=== PATIENT | female | born 1970 | race Caucasian/White ===

== ENCOUNTER 2016-11-30 13:59 | Emergency (ER) | payer OTHER ==
[~2016-11-30] VITALS: Ht 160 cm; Wt 77.1 kg
[~2016-11-30 13:59] MED LIST: FLOMAX0.4 M1 PO; FLUOXETINE HCL20 M2; PERCOCET 5-3251 EACH PO; TOPAMAX25 M3 PO; ZOFRAN ODT4 M1 SL
--- NOTE | 2016-11-30 14:10 | ED GENERAL ADULT ---
History of Present Illness General Chief Complaint: General Adult Stated Complaint: PT CHEST IS HURTING ,DIZZY,NAUSEA Source: patient Exam Limitations: no limitations Vital Signs & Intake/Output Vital Signs & Intake/Output Vital Signs Date Time Temp Pulse Resp B/P Pulse O2 O2 Flow FiO2 Ox Delivery Rate 11/30 1626 78 18 147/89 98 Nasal 2.0L Cannula 11/30 1616 72 18 140/78 97 Room Air 11/30 1407 97.0 90 20 163/80 97 Room Air Allergies Coded Allergies: Penicillins (RASH 06/21/16) hydromorphone (From DILAUDID) (VOMITING, PAIN , SICK 11/30/16) Reconcile Medications Atorvastatin Calcium 10 MG TABLET 1 TAB PO DAILY CHOLESTEROL (Reported) Ergocalciferol (Vitamin D2) (Vitamin D2) 50,000 UNIT CAPSULE 1 CAP PO QTUES SUPPLEMENT (Reported) Fluoxetine HCl (Prozac) 40 MG CAPSULE 1 CAP PO QAM ANXIETY (Reported) Naproxen (Naprosyn) 500 MG TABLET 1 TAB PO Q12H PRN PAIN/INFLAMMATION ( Reported) Topiramate (Topamax) 25 MG TABLET 25 MG PO BID MIGRAINES (Reported) Triage Note: PT PRESENTS TO ER C/O OF LEFT SIDED CHEST PAIN THAT STARTED LAST NIGHT. PT ALSO C/O OF DIZZNESS AND NAUSEA. PT STATES SHE HAD A NUC STRESS TEST YESTERDAY BECAUSE SHE HAS BEEN HAVING CHEST PAIN. PT UNSURE OF RESULTS. PT STATES SHE WAS LYING DOWN IN BED WHEN PAIN STARTED Triage Nurses Notes Reviewed? yes Onset: Gradual Duration: day(s): (1.5) Timing: recent history Injury Environment: home Severity: moderate Severity Numbers: 7 No Modifying Factors: none Associated Symptoms: chest pain HPI: Patient is a 46-year-old female with recent history of chest pains presenting to the emergency department with chief complaint left-sided chest pain that sharp and stabbing in nature and nonradiating. Patient also reports that she had a nuclear stress test done yesterday, unsure about the results. She did not call her mixing machine tender that she did not want to bother them. Denies any palpitations. Patient reports malaise, intermittent dizziness is worse with positional changes. Positive nausea, no vomiting. Denies any change in bowel habits. No urinary symptoms. Denies taking anything help with symptoms. She does report that she's been under a lot of stress. Denies any coughing or sputum production. No fevers or chills. (LUÍS HO) Past History Travel History Traveled to [place] past 21 day No Medical History Any Pertinent Medical History? see below for history Neurological: NONE EENT: NONE Cardiovascular: NONE Respiratory: NONE Gastrointestinal: NONE Hepatic: NONE Renal: KIDNEY STONES Musculoskeletal: NONE Psychiatric: anxiety Endocrine: NONE Blood Disorders: NONE Cancer(s): NONE EXPLOSIVE ORDNANCE DISPOSAL SPECIALIST/Reproductive: OVARIAN CYST Surgical History Surgical History: OVARIAN CYST, TUBAL LIGATION Psychosocial History What is your primary language French Tobacco Use: Quit >30 days ago Family History Hx Contributory? No (LUÍS HO) Review of Systems Review of Systems Constitutional: Reports: malaise. Comments Review of systems: See HPI, All other systems negative. Constitutional, no chills fever or weight loss HEENT: No visual changes no sore throat no congestion Cardiovascular: No palpitation , orthopnea or ankle swelling Skin, no jaundice no rashes Respiratory: No dyspnea cough sputum or hemoptysis GI: no vomiting : No dysuria No hematuria Muscle skeletal: no back pain, no neck pain, Neurologic: No numbness no confusion Psych: positive stress and anxiety Immunology: No splenectomy or history of AIDS (LUÍS HO) Physical Exam Physical Exam General Appearance: well developed/nourished, no apparent distress, alert, awake , comfortable Comments: Well-developed well-nourished person in no acute distress HEENT: Pupils equally round and reactive to light and accommodation. Nose is atraumatic. Neck: Supple, no lymphadenopathy, normal range of motion without pain or tenderness Back: Nontender, no CVA tenderness. Full range of motion Cardiovascular: Regular rate and rhythms no murmurs rubs or gallops, normal JVP Respiratory: Chest nontender. No respiratory distress.breath sounds clear to auscultation bilaterally Abdomen: Soft, nontender nondistended, no appreciable organomegaly. Normal bowel sounds. No ascites Extremity: No edema, no calf tenderness to palpation, normal and equal pulses. Neuro: Alert oriented x3, cranial nerves II through XII grossly intact. Skin: No appreciable rash on exposed skin, skin is warm and dry. Psych: Mood and affect is normal, memory and judgment is normal. Core Measures ACS in differential dx? Yes CVA/TIA Diagnosis: No Severe Sepsis Present: No Septic Shock Present: No (LUÍS HO) Progress Differential Diagnoses I considered the following diagnoses in my evaluation of the patient: ACS, pulmonary embolus, bronchitis, pneumonia, viral syndrome, influenza Plan of Care: Orders Procedure Date/time Status PARTIAL THROMBOPLASTIN TIME 11/30 1427 Complete PROTHROMBIN TIME 11/30 1427 Complete Telemetry/Rock Loader 11/30 142 Active TROPONIN LEVEL 11/30 1426 Complete COMPREHENSIVE METABOLIC PANEL 11/30 1426 Complete CHOLESTEROL 11/30 1426 Complete CBC WITHOUT DIFFERENTIAL 11/30 1426 Complete EKG 11/30 1401 Active Laboratory Tests 11/30/16 1433: Anion Gap 12, Estimated GFR 53 L, BUN/Creatinine Ratio 12.7, Glucose 101 H, Calcium 10.2, Total Bilirubin 1.1, AST 19, ALT 34, Alkaline Phosphatase 110, Troponin I < 0.01, Total Protein 7.3, Albumin 4.4, Globulin 2.9, Albumin/ Globulin Ratio 1.5, Cholesterol 193, PT 11.0, INR 1.05, APTT 31, CBC w Diff NO MAN DIFF REQ, RBC 4.63, MCV 90.5, MCH 30.5, RDW 12.9, MPV 8.9, Gran % 60.4, Lymphocytes % 28.3, Monocytes % 7.3, Eosinophils % 3.6, Basophils % 0.4, Absolute Granulocytes 3.5, Absolute Lymphocytes 1.6, Absolute Monocytes 0.4, Absolute Eosinophils 0.2, Absolute Basophils 0, PUBS MCHC 33.7 Diagnostic Imaging: Viewed by Me: Radiology Read. Discussed w/RAD: Radiology Read. CXR Impression: no acute abnormality, no infiltrates, normal size heart, normal mediastinum Initial ED EKG: SINUS RHYTHM AT 84 BPM Prior EKG: unchanged Comments: At arrival patient in no acute distress, reports that she is allergic to aspirin. No change in medications. Exam is benign. Patient will be given nitroglycerin sublingual to see IF IT WOULD help with pain. Reset to patient's mixing machine tender. , he reports that the nuclear stress tests came back normal yesterday. Patient was informed of negative troponin, unchanged EKG. Patient feeling better after Ativan. Patient will follow-up with her mixing machine tender and her primary care physician. He did have increasing fluids, taking Motrin or Tylenol for any aches or pains. Symptoms were greater than 24 hours ago and symptoms have been constant, troponin is negative. No need for repeat troponin especially since NUCLEAR STRESS TEST yesterday was negative. (LUÍS HO) Departure Departure Time of Disposition: 1733 Disposition: HOME OR SELF CARE Condition: Stable Clinical Impression Primary Impression: Chest pain Qualifiers: Chest pain type: unspecified Qualified Code: R07.9 - Chest pain, unspecified Secondary Impressions: Dizziness Referrals: ELIO BRIGHT (PCP/Family) Additional Instructions: Follow-up with your primary care physician as well as her mixing machine tender collimating appointment. Increase fluids. Take Motrin or Tylenol as directed. Departure Forms: Customer Survey General Discharge Information (LUÍS HO) PA/BLOCK BOLTER MULE OPERATOR Co-Sign Statement Statement: ED Attending supervision documentation- x I saw and evaluated the patient. I have also reviewed all the pertinent lab results and diagnostic results. I agree with the findings and the plan of care as documented in the PA's/BLOCK BOLTER MULE OPERATOR's documentation. [] I have reviewed the ED Record and agree with the PA's/BLOCK BOLTER MULE OPERATOR's documentation. [] Additions or exceptions (if any) to the PAs/BLOCK BOLTER MULE OPERATOR's note and plan are summarized below: [] (SHALA IRIZARRY,PADMINI) Critical Care Note Critical Care Note Critical Care Time: non-applicable (LUÍS HO)
[2016-11-30 14:55] LABS: ABSOLUTE BASOPHIL COUNT 0 /CUMM (0.0-0.2); ABSOLUTE EOSINOPHIL COUNT 0.2 /CUMM (0.0-0.7); ABSOLUTE GRANULOCYTE CT 3.5 /CUMM (1.4-6.5); ABSOLUTE LYMPH COUNT 1.6 /CUMM (1.2-3.4); ABSOLUTE MONOCYTE COUNT 0.4 /CUMM (0.10-0.60); BASOPHIL % 0.4 % (0.0-2.0); EOSINOPHIL % 3.6 % (0-5); GRANULOCYTE % 60.4 % (42.2-75.2); HEMATOCRIT 41.9 % (37-47); MEAN CORPUSCULAR HGB 30.5 PG (27.0-31.0); MEAN CORPUSCULAR HGB CONC 33.7 G/DL (33.0-37.0); MEAN CORPUSCULAR VOLUME 90.5 FL (81.0-99.0); MEAN PLATELET VOLUME 8.9 FL (7.4-10.4); PLATELET COUNT 254 /CUMM (130-400); RBC DISTRIBUTION WIDTH 12.9 % (11.5-14.5); RED BLOOD CELL CT 4.63 /CUMM (4.20-5.40); WHITE BLOOD CELL COUNT 5.8 /CUMM (4.8-10.8)
[2016-11-30 14:56] LABS: PTT 31 SEC (25-37)
--- NOTE | 2016-11-30 15:01 | RADIOLOGY REPORT ---
EXAMINATION: XR CHEST, 2 VIEWS CLINICAL INFORMATION: Chest pain COMPARISON: None. TECHNIQUE: PA and lateral views of the chest were obtained. FINDINGS: Lungs are clear. No consolidation, pneumothorax, or pleural effusion. Cardiac and mediastinal contours are normal. Pulmonary vasculature is unremarkable. Trachea is midline. Minimal degenerative spondylosis is present in the thoracic spine. IMPRESSION: Normal chest radiographs.
[2016-11-30] MEDS ORDERED: PROZAC40 M1 PO (17:03)
[2016-11-30] MEDS ORDERED: VITAMIN D250000 UNIT PO (17:04)
[2016-11-30] MEDS ORDERED: ATORVASTATIN CA10 M1 PO (17:05)
[2016-11-30] MEDS ORDERED: NAPROSYN500 M1 PO (17:06)
[2016-11-30 17:44] VITALS: BP 159/90
== END 2016-11-30 17:50 ==
LOC: ERH 13:59
PROVIDERS: Physician Assistant
DX: R07.9 Chest pain, unspecified (principal); R42 Dizziness and giddiness
CPT/HCPCS: 93005; 93010; 96374; J3490